=== PATIENT | female | born 1970 | race Caucasian/White ===

== ENCOUNTER → 2017-04-07 | Outpatient (CLI) | payer MEDICARE ==
[~2017-04-07] MED LIST: BACL-19 PO; BUPR-86 PO; BUTA1CAP PO; CARI250T PO; DIAZ5TAB4 PO; DIME240C PO; DIVA250T6 PO; FENTANYL PF 100 MCG/2ML ONE; GABA600T2 PO; MIDAZOLAM 1 MG/ML, 5ML ONE; NALO12.5 PO; OMEP-110 PO; PROM25TA10 PO; PROP60CA8 PO; SERT100T5 PO; TIZA4CAP PO; TRAZ100T15 PO
== END | disposition home or self-care (01) ==
LOC: RAD 09:50
PROVIDERS: ATTEND Psychiatry & Neurology Neurology
DX: H46.8 Other optic neuritis (principal)
CPT/HCPCS: 70470; 70482; J2250; J3010; Q9967

== ENCOUNTER 2018-09-20 11:03 | Outpatient (CLI) | payer MEDICAID, MEDICARE | END 2018-09-20 23:59 | disposition home or self-care (01) | LOC: RAD 11:03 | PROVIDERS: ATTEND Psychiatry & Neurology Neurology | DX: R90.82 White matter disease, unspecified (principal); G35 Multiple sclerosis | CPT/HCPCS: 70553; A9585 ==